=== PATIENT | female | born 1955 | race Caucasian/White ===

== ENCOUNTER 2017-07-16 20:20 | Emergency (ER) | payer BC, OTHER ==
--- NOTE | 2017-07-16 20:29 | EDM.PDOC ---
<Hortencia Hernández - Last Filed: 07/16/17 21:47> ED HPI GENERAL MEDICAL PROBLEM - General Chief Complaint: Eye Problems Stated Complaint: RT EYE ISSUE Time Seen by Provider: 07/16/17 20:29 Source of Information: Reports: Patient History Limitations: Reports: No Limitations - History of Present Illness INITIAL COMMENTS - FREE TEXT/NARRATIVE: HISTORY AND PHYSICAL: 62-year-old female presenting with I exudate History of Present Illness: []awakened with a small amount of exudate and redness to her eye this is progressively worsened throughout the day When asked about pain she denies really pain but has pressure associated with this Review of Systems: As per history of present illness and below otherwise all systems reviewed and negative. Past medical history: As per history of present illness and as reviewed below otherwise noncontributory. Surgical history: As per history of present illness and as reviewed below otherwise noncontributory. Social history: No reported history of drug or alcohol abuse. Family history: As per history of present illness and as reviewed below otherwise noncontributory. Physical exam: Alert and oriented female answering questions appropriately in full sentences without any shortness of breath HEENT: Atraumatic, normocehpalic, pupils reactive, negative for conjunctival pallor or scleral icterus, mucous membranes moist, throat clear, neck supple, nontender, trachea midline. Sclerae erythematous edematous there is exudate present weeping. Edema noted to the lower eyelid. Lungs: Clear to auscultation, breath sounds equal bilaterally, chest non tender. Heart: S1S2, regular, negative for clicks, rubs, or JVD. Abdomen: Soft, nondistended, nontender. Negative for masses or hepatossplenmegaly. Negative for costovertebral tenderness. Pelvis: Stable nontender. Genitourinary: Deferred. Rectal: Deferred Extremities: Atraumatic, negative for cords or calf pain. Neurovascular unremarkable. Neuro: Awake, alert, oriented. Cranial nerves II through XII unremarkable. Cerebellum unremarkable. Motor and sensory unremarkable throughout. Exam nonfocal. Diagnostics: []CBC CMP Maxillary facial CT Therapeutics: [] Impression: []Periorbital cellulitis Plan: [] Definitive disposition and diagnosis as appropriate pending reevaluation and review of above. Onset: Today, Sudden Duration: Hour(s):, Getting Worse Quality: Reports: Ache, Pressure Severity: Moderate right eye Pain Score (Numeric/FACES): 5 - Related Data Allergies Allergy/AdvReac Type Severity Reaction Status Date / Time No Known Allergies Allergy Verified 07/16/17 20:31 Home Meds: Home Meds Levothyroxine 1 tab PO DAILY 07/16/17 [History] ED ROS GENERAL - Review of Systems Review Of Systems: ROS reveals no pertinent complaints other than HPI. ED EXAM GENERAL W FULL EYE - Physical Exam Exam: See Below (See dictation) Course - Vital Signs Last Recorded V/S: Last Vital Signs Temp 97.8 F 07/16/17 20:32 Pulse 96 07/16/17 20:32 Resp 18 07/16/17 20:32 BP 146/66 H 07/16/17 20:32 Pulse Ox 98 07/16/17 20:32 - Orders/Labs/Meds Orders: Active Orders 24 hr Category Date Time Status Max Facial Sinus w Cont [CT] Stat Exams 07/16/17 20:39 Taken Labs: Laboratory Tests 07/16/17 07/16/17 Range/Units 20:55 20:55 WBC 8.46 (4.0-11.0) K/uL RBC 4.32 (4.30-5.90) M/uL Hgb 12.9 (12.0-16.0) g/dL Hct 37.8 (36.0-46.0) % MCV 87.5 (80.0-98.0) fL MCH 29.9 (27.0-32.0) pg MCHC 34.1 (31.0-37.0) g/dL RDW Std Deviation 46.3 (28.0-62.0) fl RDW Coeff of Satish 15 (11.0-15.0) % Plt Count 256 (150-400) K/uL MPV 9.70 (7.40-12.00) fL Neut % (Auto) 49.0 (48.0-80.0) % Lymph % (Auto) 37.8 (16.0-40.0) % [place] % (Auto) 10.0 (0.0-15.0) % Eos % (Auto) 2.7 (0.0-7.0) % Baso % (Auto) 0.5 (0.0-1.5) % Neut # (Auto) 4.1 (1.4-5.7) K/uL Lymph # (Auto) 3.2 H (0.6-2.4) K/uL [place] # (Auto) 0.9 H (0.0-0.8) K/uL Eos # (Auto) 0.2 (0.0-0.7) K/uL Baso # (Auto) 0.0 (0.0-0.1) K/uL Nucleated RBC % 0.0 /100WBC Nucleated RBCs # 0 K/uL Sodium 140 (136-145) mmol/L Potassium 3.9 (3.5-5.1) mmol/L Chloride 106 (98-107) mmol/L Carbon Dioxide 24.5 (21.0-32.0) mmol/L BUN 29 H (7.0-18.0) mg/dL Creatinine 0.9 (0.6-1.0) mg/dL Est Cr Clr Drug Dosing 52.24 mL/min Estimated GFR (MDRD) > 60.0 ml/min Glucose 104 (74-106) mg/dL Calcium 9.2 (8.5-10.1) mg/dL Total Bilirubin 0.2 (0.2-1.0) mg/dL AST 21 (15-37) IU/L ALT 22 (14-63) IU/L Alkaline Phosphatase 101 (46-116) U/L Total Protein 7.7 (6.4-8.2) g/dL Albumin 3.7 (3.4-5.0) g/dL Globulin 4.0 H (2.0-3.5) g/dL Albumin/Globulin Ratio 0.9 L (1.3-2.8) Departure - Departure Time of Disposition: 21:49 Disposition: Still A Patient 30 Condition: Good Clinical Impression: Periorbital cellulitis of right eye - Discharge Information Referrals: Shirin Reilly NP [Primary Care Provider] - Forms: ED Department Discharge Additional Instructions: Medication as prescribed Follow-up with ophthalmology at [facility], call Tuesday to schedule appropriate follow-up Return if symptoms persist or worsen despite treatment [address] [address] The following information is given to patients seen in the emergency department who are being discharged to home. This information is to outline your options for follow-up care. We provide all patients seen in our emergency department with a follow-up referral. The need for follow-up, as well as the timing and circumstances, are variable depending upon the specifics of your emergency department visit. If you don't have a primary care physician on staff, we will provide you with a referral. We always advise you to contact your personal physician following an emergency department visit to inform them of the circumstance of the visit and for follow-up with them and/or the need for any referrals to a consulting specialist. The emergency department will also refer you to a specialist when appropriate. This referral assures that you have the opportunity for follow-up care with a specialist. All of these measure are taken in an effort to provide you with optimal care, which includes your follow-up. Under all circumstances we always encourage you to contact your private physician who remains a resource for coordinating your care. When calling for follow-up care, please make the office aware that this follow-up is from your recent emergency room visit. If for any reason you are refused follow-up, please contact the [facility] emergency department at and asked to speak to the emergency department charge nurse. <Chemo Monroy - Last Filed: 07/16/17 22:48> ED HPI GENERAL MEDICAL PROBLEM - History of Present Illness INITIAL COMMENTS - FREE TEXT/NARRATIVE: Patient presents as above denies any trauma to the eye No fever nausea vomiting chills sweats no visual changePer patient no contact lens usage vision 20/40 right eye 20/30 left eye HEENT NCAT PERRLA EOMI painless range of motion of the orbit slight edema to the lower eyelid exudates in the angles of her eye sclera is reddened and edematous Chest clear throughout CV regular rate and rhythm Abdomen benign Extremities four-inch motion strength 5 out of 5 no edema 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
[2017-07-16 21:25] LABS: CHLORIDE,CL 106 mmol/L (98-107); SODIUM,NA 140 mmol/L (136-145)
[2017-07-16] MEDS ORDERED: cefTRIAXone 1,000 MG in Lidocaine 1% 4 ML IM ONE (22:59)
--- NOTE | 2017-07-18 13:29 | CT ---
EXAM DATE: 07/16/17 PATIENT'S AGE: 62 Patient: AMA GIBSON Facility: [place], [place] Site . Site : [id number] Study: CT Facial [id number] 10:00:38 PM Ordering Physician: Doctor Mcdonough Final Report: TECHNIQUE: Noncontrast CT of the facial bones. INDICATION: Right eye swelling. FINDINGS: Mild right periorbital soft tissue swelling. No postseptal abnormalities. Globes are normal. No facial bone fractures. Small polyp or retention cyst in the right maxillary sinus. Visualized face otherwise unremarkable. IMPRESSION: Mild right preseptal periorbital soft tissue edema. Please note that all CT scans performed at this facility use dose modulation, iterative reconstruction, and/or weight based dosing when appropriate to reduce radiation dose to as low as reasonably achievable. Dictated by Arcenio Rubin MD @ 07/16/2017 10:10:33 PM Please note that all CT scans at this facility use dose modulation, iterative reconstruction, and/or weight-based dosing when appropriate to reduce radiation dose to as low as reasonably achievable. Dictated by: Arcenio Rubin MD @ 07/16/2017 22:10:40 (Electronic Signature) Report Signed by Proxy. [facility]ENTERDuong
== END 2017-07-16 23:26 | disposition home or self-care (01) ==
LOC: MW.ED 20:20
DX: L03.213 Periorbital cellulitis (principal); Z79.899 Other long term (current) drug therapy
CPT/HCPCS: 36415; 70487; 80053; 85025; 96372; 99284; J0696; 99283